=== PATIENT | male | born 1975 | race Two or more races ===

== ENCOUNTER 2020-05-15 11:10 | Emergency (ER) | payer SELFPAY ==
[~2020-05-15] VITALS: Ht 172.7 cm; Wt 95.4 kg
[2020-05-15 11:26] VITALS: BP 156/74
[2020-05-15] MEDS ORDERED: LIDOCAINE 1%/EPI 1:100,000 20 ML VIAL. SQ ONE (11:45)
--- NOTE | 2020-05-15 12:22 | RAD ---
PQRS Compliance Statement: One or more of the following individualized dose reduction techniques were utilized for this examination: 1. Automated exposure control 2. Adjustment of the mA and/or kV according to patient size 3. Use of iterative reconstruction technique CT MAXILLOFACIAL WITHOUT CONTRAST History: Reason: mandible pain after fall / Technique: Axial helical images of the face were obtained without contrast. Axial and coronal reconstruction was performed. Findings: There is no acute facial bone fracture. There is no acute fracture of the mandible. The TMJ are intact. Mild mucosal thickening inferiorly in the bilateral maxillary sinuses. Tiny air-fluid level in the right, image 31. Mucous retention cyst or polyp and mild mucosal thickening left sphenoid sinus. Frontal sinuses are clear. Mild mucosal thickening bilateral ethmoid sinuses. Mastoid air cells are aerated. The orbits are normal. The globes are intact. The nasal septum is mostly midline. The upper cervical spine alignment is maintained. Mild endplate spurring of C5/C6. Not protocoled for its evaluation, there is no midline shift or obvious mass effect in the visualized brain. IMPRESSION: 1. No acute facial bone fracture. 2. Tiny air-fluid level in the right maxillary sinus suggests acute sinusitis. Electronically signed by: Parth Brothers MD (05/15/2020 12:20 PM) [id number]
--- NOTE | 2020-05-15 12:29 | PHYS DOC ---
Past Medical History Past Medical History: No Pertinent History Past Surgical History: No Surgical History Smoking Status: Never Smoker Alcohol Use: None General Adult EDM: Chief Complaint: MECHANICAL FALL HPI: HPI: Patient is a 45 year old male, accompanied by his significant other, who presents to the emergency department with complaints of a laceration to his Left upper lip, missing tooth, and loose teeth following a fall that happened at approximately 8 PM last night. He denies loss of consciousness, nausea, vomiting, neck pain, back pain, or extremity pain from the fall. Patient states that he misstepped and fell down approximately 3 or 4 steps when he hit his head on the corner of a wall. He reports his last tetanus shot was less than 5 years ago. He denies any nasal pain, swelling, or bleeding after the fall. He currently denies any pain unless the lacerated area is touched. He denied any previous medical or surgical history. Review of Systems: Review of Systems: Complete review of systems is negative unless otherwise documented in the HPI. Heart Score: Risk Factors: Risk Factors: DM, Current or recent (<one month) smoker, HTN, HLP, family history of CAD, obesity. Risk Scores: Score 0 - 3: 2.5% MACE over next 6 weeks - Discharge Home Score 4 - 6: 20.3% MACE over next 6 weeks - Admit for Clinical Observation Score 7 - 10: 72.7% MACE over next 6 weeks - Early Invasive Strategies Current Medications: Current Medications Medications (Trade) Dose Ordered Sig/[place]win Start Time Stop Time Status Last Admin Dose Admin Lidocaine/ Epinephrine (LIDOCAINE 1%-EPI 1:100,000 Multi-Dose) 20 ml 1X ONCE 05/15/20 11:45 05/15/20 11:46 DC 05/15/20 11:58 20 ML Allergies: Allergies: Allergies Coded Allergies Type Severity Reaction Last Updated Verified No Known Drug Allergies 05/15/20 No Physical Exam: PE: Constitutional: Well developed, well nourished, no acute distress, non-toxic appearance. [] HENT: Normocephalic, bilateral external ears normal, nose normal; dental trauma present tooth #11 is missing, teeth 9 and 10 are loose but intact, no obvious deformity of the upper palate, there is a laceration to the left upper lip that crosses the vermilion border see skin assessment [] Eyes: PERRLA, EOMI, conjunctiva normal, no discharge. [] Neck: Normal range of motion, nontender, supple, no stridor. [] Cardiovascular:Heart rate regular rhythm Lungs & Thorax: Respirations even and unlabored, no retractions, no respiratory distress Skin: Warm, dry; 3 cm stellate laceration extending through the vermilion border noted to the left upper lip, no visible foreign body, no active bleeding, laceration does not extend through to the mucosal surface. Extremities: No cyanosis, ROM intact, no edema. [] Neurologic: Alert and oriented X 3, no focal deficits noted. [] Psychologic: Affect normal, judgement normal, mood normal. [] Current Patient Data: Vital Signs: Vital Signs Date Time Temp Pulse Resp B/P (MAP) Pulse Ox O2 Delivery O2 Flow Rate FiO2 05/15/20 11:26 98.7 72 18 156/74 (101) 98 Room Air 98.7 EKG: EKG: [] Radiology/Procedures: Radiology/Procedures: PROCEDURE: CT MAXILLOFACIAL WO CONTRAST PQRS Compliance Statement: One or more of the following individualized dose reduction techniques were utilized for this examination: 1. Automated exposure control 2. Adjustment of the mA and/or kV according to patient size 3. Use of iterative reconstruction technique CT MAXILLOFACIAL WITHOUT CONTRAST History: Reason: mandible pain after fall / Technique: Axial helical images of the face were obtained without contrast. Axial and coronal reconstruction was performed. Findings: There is no acute facial bone fracture. There is no acute fracture of the mandible. The TMJ are intact. Mild mucosal thickening inferiorly in the bilateral maxillary sinuses. Tiny air-fluid level in the right, image 31. Mucous retention cyst or polyp and mild mucosal thickening left sphenoid sinus. Frontal sinuses are clear. Mild mucosal thickening bilateral ethmoid sinuses. Mastoid air cells are aerated. The orbits are normal. The globes are intact. The nasal septum is mostly midline. The upper cervical spine alignment is maintained. Mild endplate spurring of C5/C6. Not protocoled for its evaluation, there is no midline shift or obvious mass effect in the visualized brain. IMPRESSION: 1. No acute facial bone fracture. 2. Tiny air-fluid level in the right maxillary sinus suggests acute sinusitis. Laceration Repair by me: Anesthesia: 1% lidocaine locally with epi Location: Left upper lip Tendon/Joint/Nerves: No injury Foreign body: None detected after copious irrigation and exploration with NS and chlorhexidine Technique: 8 Simple Interrupted Sutures with 6-0 Prolene Complexity: Vermilion border repair, stellate laceration Post Closure Length: 3 cm Patient's bleeding was easily controlled in the department and there is no indication of anemia. No evidence of compartment syndrome, neurologic injury, vascular injury, open joint, tendon laceration, or foreign body. Patient is appropriate for outpatient follow up. 48 hour wound check. Scar minimization instructions given. [] Course & Med Decision Making: Course & Med Decision Making Pertinent Labs and Imaging studies reviewed. (See chart for details) 45-year-old male presents to the emergency department with complaints of a dental injury, and upper lip laceration. CT facial bones was negative for any acute findings. Wound repair as documented above. Prescriptions were written for clindamycin and chlorhexidine. Patient was provided with a dental referral and instructed to follow-up as soon as possible about his missing and loose teeth. He was instructed to follow a soft diet until follow-up with the dentist. Patient and his verbalized an understanding of home care, medications, follow-up, and return to ED instructions and was in agreement with the plan of care. [] Dragon Disclaimer: Dragon Disclaimer: This electronic medical record was generated, in whole or in part, using a voice recognition dictation system. Departure Departure Impression: Primary Impression: Facial laceration Qualified Codes: S01.81XA - Laceration without foreign body of other part of head, initial encounter Additional Impressions: Laceration of vermilion border of upper lip Qualified Codes: S01.511A - Laceration without foreign body of lip, initial encounter Laceration of upper lip with complication Qualified Codes: S01.511A - Laceration without foreign body of lip, initial encounter Open avulsion fracture of tooth Qualified Codes: S02.5XXB - Fracture of tooth (traumatic), initial encounter for open fracture Disposition: 01 HOME, SELF-CARE Condition: STABLE Referrals: NO PCP (PCP) Patient Instructions: Diet - Soft, Facial Laceration, [id number], Tooth Injuries, [id number], Tooth Loss Additional Instructions: Fill the prescriptions and take them as directed. Keep the area clean and dry, wash twice daily with soap and water and then apply antibiotic ointment to the affected area.. You may take Tylenol or ibuprofen as needed for pain. . Follow- up with your primary care doctor, or return to the emergency room in 5-7 days to have the sutures removed, sooner if you develop signs of infection including: redness, warmth, drainage, or a fever. Follow-up with a dentist using the dental referral list provided for further treatment of your dental injury loose teeth, follow the soft diet instructions provided until you see a dentist. Scripts Chlorhexidine Gluconate (PERIDEX) 15 Ml Mouthwash 15 ML SWSP BID for 7 Days, #473 ML 0 Refills [place] teeth before using to prevent staining. Swish for approximately 30 seconds before spitting. Prov: JOANA MCARTHUR APRN 05/15/20 Clindamycin Hcl (CLINDAMYCIN HCL) 150 Mg Capsule 450 MG PO TID for 7 Days, #63 CAP 0 Refills Prov: JOANA MCARTHUR APRN 05/15/20 Justicifation of Admission Dx: Justifications for Admission: Justification of Admission Dx: N/A JOANA MCARTHUR APRN May 15, 2020 12:28
[2020-05-15] MEDS ORDERED: CLIN150C14 PO (14:05)
[2020-05-15] MEDS ORDERED: CHLO15MO2 SWSP (14:05)
== END 2020-05-15 14:10 | disposition home or self-care (01) ==
LOC: ER 11:10
DX: S02.5XXB Fracture of tooth (traumatic), initial encounter for open fracture (principal); W18.39XA Other fall on same level, initial encounter; Y93.89 Activity, other specified; Y92.89 Other specified places as the place of occurrence of the external cause; Y99.8 Other external cause status
CPT/HCPCS: 40650; 70486; 99284; J3490

== ENCOUNTER 2021-05-26 03:54 | Emergency (ER) | payer SELFPAY ==
[~2021-05-26 03:54] MED LIST: CHLO15MO2 SWSP; CLIN150C16 PO
== END 2021-05-26 04:36 | disposition left against medical advice (07) ==
LOC: ER 03:54
DX: K08.89 Other specified disorders of teeth and supporting structures (principal); Z53.21 Procedure and treatment not carried out due to patient leaving prior to being seen by health care provider